=== PATIENT | male | born 1935 | race African-American/Black ===

== ENCOUNTER 2016-07-28 15:47 | Inpatient (IN) | payer MEDICARE, BC ==
[~2016-07-28] VITALS: Ht 177.8 cm; Wt 93.9 kg
[~2016-07-28 15:47] MED LIST: AMLO1CAP61 PO; BETH25TA PO; FURO20TA4 PO; GABA300S PO; HYDR-4005 PO; LEVAQUIN; ROSU10TA PO; SILO8CAP PO; [UNRECOGNIZED DRUG - OTHER]
[2016-07-28 16:00] VITALS: BP 158/72
[2016-07-28 17:00] VITALS: BP 156/84
[2016-07-28] MEDS ORDERED: ONDANSETRON HCL 4MG/2ML VIAL IV PRN (17:00)
[2016-07-28] MEDS ORDERED: ACETAMINOPHEN 650MG/20.3ML UDC PO PRN (17:00)
[2016-07-28] MEDS ORDERED: DEXTROSE 50% WATER 50ML SYRINGE IV PRN ×2 (17:00→17:45)
[2016-07-28] MEDS ORDERED: DOCUSATE SODIUM 250MG CAPSULE PO PRN (17:00)
[2016-07-28] MEDS ORDERED: IPRATROPIUM/ALBUTEROL 0.5-3(2.5)MG/3ML NEB HHN PRN (17:00)
[2016-07-28] MEDS ORDERED: HYDRALAZINE 20MG/ML VIAL IV PRN (17:00)
[2016-07-28] MEDS ORDERED: GUAIFENESIN 200MG/10ML SUGAR FREE UDC PO PRN (17:30)
[2016-07-28] MEDS ORDERED: HYDRALAZINE 10 MG in SODIUM CHLORIDE 0.9% 49.5 ML IV PRN (17:30)
[2016-07-28] MEDS ORDERED: DOCUSATE SODIUM 100MG CAPSULE PO PRN (17:30)
[2016-07-28] MEDS ORDERED: NA PHOS,M-B/NA PHOS,DI-BA ENEMA 118ML PR PRN (17:45)
[2016-07-28] MEDS ORDERED: NITROGLYCERIN 0.4MG TABLET SL SL PRN (17:45)
[2016-07-28] MEDS ORDERED: ZOLPIDEM TARTRATE 5MG TABLET PO PRN (17:45)
[2016-07-28 20:00] VITALS: BP 139/83
[2016-07-28] MEDS: INSULIN LISPRO 100 UNITS/ML SUBCUT SCH (21:00)
[2016-07-28] MEDS: BLOOD SUGAR DIAGNOSTIC STRIP TEST SCH (21:00)
[2016-07-28] MEDS: FAMOTIDINE 20MG TABLET PO SCH (22:16)
[2016-07-28] MEDS: ASCORBIC ACID 500 MG TABLET PO SCH (22:17)
[2016-07-28] MEDS: SILDENAFIL CITRATE 20MG TABLET PO SCH (22:19)
[2016-07-28] MEDS: ENOXAPARIN 30MG/0.3ML SYR SUBCUT SCH (22:23)
[2016-07-28] MEDS: [UNRECOGNIZED DRUG - OTHER] PO PRN (22:25)
[2016-07-29] MEDS: CEFEPIME 1,000 MG in DEXTROSE 5% WATER 50 ML IV SCH ×2 (04:38→17:22)
[2016-07-29] MEDS: SILDENAFIL CITRATE 20MG TABLET PO SCH ×3 (06:38→21:00)
[2016-07-29] MEDS: BLOOD SUGAR DIAGNOSTIC STRIP TEST SCH ×4 (06:39→20:53)
[2016-07-29] MEDS: INSULIN LISPRO 100 UNITS/ML SUBCUT SCH ×4 (06:39→20:53)
[2016-07-29] MEDS: HYDROCODONE/ACETAMINOPHEN 10/325MG TABLET PO PRN ×2 (06:47→17:16)
[2016-07-29] MEDS: [UNRECOGNIZED DRUG - OTHER] PO PRN (06:47)
[2016-07-29 08:00] VITALS: BP 198/100
[2016-07-29] MEDS: FAMOTIDINE 20MG TABLET PO SCH ×2 (08:05→20:56)
[2016-07-29] MEDS: ASPIRIN 325MG TABLET PO SCH (08:06)
[2016-07-29] MEDS: CLOPIDOGREL 75MG TABLET PO SCH (08:06)
[2016-07-29] MEDS: ASCORBIC ACID 500 MG TABLET PO SCH ×2 (08:06→20:55)
[2016-07-29] MEDS: ENOXAPARIN 30MG/0.3ML SYR SUBCUT SCH ×2 (08:07→20:55)
[2016-07-29] MEDS ORDERED: CLONIDINE 0.1MG TABLET PO PRN (09:00)
[2016-07-29] MEDS ORDERED: AMLODIPINE 5MG TABLET PO SCH (09:00)
[2016-07-29] MEDS: LISINOPRIL 20MG TABLET PO SCH ×2 (09:13→20:56)
[2016-07-29 09:15] VITALS: BP 146/78
[2016-07-29 10:14] VITALS: BP 130/76
[2016-07-29] MEDS ORDERED: LACTULOSE 20G/30ML UDC PO PRN (14:45)
[2016-07-29] MEDS: FUROSEMIDE 20MG TABLET PO SCH (17:17)
[2016-07-29] MEDS: MAGNESIUM/ALUMINUM HYDROXIDE/SIMETHICONE 30ML UDC PO PRN (17:22)
[2016-07-29 20:00] VITALS: BP 141/98
[2016-07-29] MEDS: AMLODIPINE 5MG TABLET PO SCH (20:55)
[2016-07-29] MEDS: ATORVASTATIN CALCIUM 10MG TABLET PO SCH (20:56)
[2016-07-30] MEDS: CEFEPIME 1,000 MG in DEXTROSE 5% WATER 50 ML IV SCH ×2 (03:52→16:29)
[2016-07-30] MEDS: SILDENAFIL CITRATE 20MG TABLET PO SCH ×3 (05:08→21:30)
[2016-07-30] MEDS: BLOOD SUGAR DIAGNOSTIC STRIP TEST SCH ×4 (06:07→21:40)
[2016-07-30] MEDS: INSULIN LISPRO 100 UNITS/ML SUBCUT SCH ×4 (07:08→21:00)
[2016-07-30 08:00] VITALS: BP 152/88
[2016-07-30] MEDS: AMLODIPINE 5MG TABLET PO SCH ×2 (09:22→21:00)
[2016-07-30] MEDS: ASPIRIN 325MG TABLET PO SCH (09:22)
[2016-07-30] MEDS: ASCORBIC ACID 500 MG TABLET PO SCH ×2 (09:22→21:29)
[2016-07-30] MEDS: FAMOTIDINE 20MG TABLET PO SCH ×2 (09:22→21:29)
[2016-07-30] MEDS: FUROSEMIDE 20MG TABLET PO SCH ×2 (09:22→16:29)
[2016-07-30] MEDS: CLOPIDOGREL 75MG TABLET PO SCH (09:22)
[2016-07-30] MEDS: LISINOPRIL 20MG TABLET PO SCH ×2 (09:22→21:29)
[2016-07-30] MEDS: ENOXAPARIN 30MG/0.3ML SYR SUBCUT SCH ×2 (09:23→21:30)
[2016-07-30] MEDS: [UNRECOGNIZED DRUG - OTHER] PO PRN (09:47)
[2016-07-30] MEDS: TRAMADOL 50MG TABLET PO PRN (09:49)
[2016-07-30 13:36] VITALS: BP 136/76
[2016-07-30 20:00] VITALS: BP 115/66
[2016-07-30] MEDS: ATORVASTATIN CALCIUM 10MG TABLET PO SCH (21:30)
[2016-07-30] MEDS: HYDROCODONE/ACETAMINOPHEN 10/325MG TABLET PO PRN (21:32)
[2016-07-31] MEDS: CEFEPIME 1,000 MG in DEXTROSE 5% WATER 50 ML IV SCH ×2 (06:40→16:09)
[2016-07-31] MEDS: SILDENAFIL CITRATE 20MG TABLET PO SCH ×3 (06:41→22:57)
[2016-07-31] MEDS: BLOOD SUGAR DIAGNOSTIC STRIP TEST SCH ×4 (06:46→21:00)
[2016-07-31] MEDS: INSULIN LISPRO 100 UNITS/ML SUBCUT SCH ×4 (06:46→21:00)
[2016-07-31] MEDS: MAGNESIUM/ALUMINUM HYDROXIDE/SIMETHICONE 30ML UDC PO PRN (06:56)
[2016-07-31] MEDS: HYDROCODONE/ACETAMINOPHEN 10/325MG TABLET PO PRN (06:59)
[2016-07-31 08:07] VITALS: BP 143/80
[2016-07-31] MEDS: LISINOPRIL 20MG TABLET PO SCH ×2 (08:32→22:57)
[2016-07-31] MEDS: AMLODIPINE 5MG TABLET PO SCH ×2 (08:32→22:57)
[2016-07-31] MEDS: ASCORBIC ACID 500 MG TABLET PO SCH ×2 (08:32→22:56)
[2016-07-31] MEDS: CLOPIDOGREL 75MG TABLET PO SCH (08:32)
[2016-07-31] MEDS: ASPIRIN 325MG TABLET PO SCH (08:32)
[2016-07-31] MEDS: FAMOTIDINE 20MG TABLET PO SCH ×2 (08:32→22:55)
[2016-07-31] MEDS: FUROSEMIDE 20MG TABLET PO SCH ×2 (08:32→17:14)
[2016-07-31] MEDS: ENOXAPARIN 30MG/0.3ML SYR SUBCUT SCH ×2 (08:34→22:56)
[2016-07-31 08:43] LABS: HEMATOCRIT. 40.7 % (42.0-52.0); HEMOGLOBIN. 13.3 g/dL (14.0-18.0); LYMPHOCYTES % 23.8 % (20.0-50.0); MEAN CORPUSCULAR VOLUME 82.2 fL (80.0-94.0); MEAN PLATELET VOLUME 8.7 fl (7.4-10.4); MONOCYTES % 10.5 % (2.0-8.0); NEUTROPHILS % 60.7 % (40.0-76.0); PLATELET 225 x1000/uL (130-400); RED BLOOD CELL COUNT 4.94 mill/uL (4.7-6.1); RED CELL DISTRIBUTION WIDTH 15.1 % (11.6-14.6)
[2016-07-31 08:54] LABS: CARBON DIOXIDE 30 mEq/L (21-32); CHLORIDE 107 mEq/L (98-107)
[2016-07-31 20:00] VITALS: BP 148/74
[2016-07-31] MEDS: ATORVASTATIN CALCIUM 10MG TABLET PO SCH (22:56)
[2016-08-01] MEDS: CEFEPIME 1,000 MG in DEXTROSE 5% WATER 50 ML IV SCH ×2 (03:33→16:22)
[2016-08-01] MEDS: [UNRECOGNIZED DRUG - OTHER] PO PRN (03:34)
[2016-08-01] MEDS: SILDENAFIL CITRATE 20MG TABLET PO SCH ×3 (06:21→22:12)
[2016-08-01] MEDS: BLOOD SUGAR DIAGNOSTIC STRIP TEST SCH ×4 (06:30→21:00)
[2016-08-01 08:00] VITALS: BP 124/75
[2016-08-01] MEDS: ASCORBIC ACID 500 MG TABLET PO SCH ×2 (08:57→22:11)
[2016-08-01] MEDS: CLOPIDOGREL 75MG TABLET PO SCH (08:57)
[2016-08-01] MEDS: AMLODIPINE 5MG TABLET PO SCH ×2 (08:57→22:12)
[2016-08-01] MEDS: FAMOTIDINE 20MG TABLET PO SCH ×2 (08:57→22:11)
[2016-08-01] MEDS: FUROSEMIDE 20MG TABLET PO SCH ×2 (08:57→17:05)
[2016-08-01] MEDS: ASPIRIN 325MG TABLET PO SCH (08:58)
[2016-08-01] MEDS: LISINOPRIL 20MG TABLET PO SCH ×2 (08:58→22:12)
[2016-08-01] MEDS: INSULIN LISPRO 100 UNITS/ML SUBCUT SCH ×4 (08:59→21:00)
[2016-08-01] MEDS: ENOXAPARIN 30MG/0.3ML SYR SUBCUT SCH ×2 (08:59→22:11)
[2016-08-01 14:10] VITALS: BP 130/77
[2016-08-01 17:40] VITALS: BP 144/69
[2016-08-01] MEDS: HYDROCODONE/ACETAMINOPHEN 10/325MG TABLET PO PRN (17:51)
[2016-08-01 20:00] VITALS: BP 119/64
[2016-08-01] MEDS: ATORVASTATIN CALCIUM 10MG TABLET PO SCH (22:11)
[2016-08-02] MEDS: CEFEPIME 1,000 MG in DEXTROSE 5% WATER 50 ML IV SCH ×2 (03:35→15:58)
[2016-08-02] MEDS: BLOOD SUGAR DIAGNOSTIC STRIP TEST SCH ×4 (05:44→21:00)
[2016-08-02] MEDS: SILDENAFIL CITRATE 20MG TABLET PO SCH ×3 (05:45→22:05)
[2016-08-02] MEDS: INSULIN LISPRO 100 UNITS/ML SUBCUT SCH ×4 (05:45→21:00)
[2016-08-02 08:00] VITALS: BP 125/88
[2016-08-02] MEDS: ENOXAPARIN 30MG/0.3ML SYR SUBCUT SCH ×2 (08:57→22:05)
[2016-08-02] MEDS: CLOPIDOGREL 75MG TABLET PO SCH (08:57)
[2016-08-02] MEDS: AMLODIPINE 5MG TABLET PO SCH ×2 (08:58→22:06)
[2016-08-02] MEDS: FUROSEMIDE 20MG TABLET PO SCH ×2 (08:58→17:17)
[2016-08-02] MEDS: LISINOPRIL 20MG TABLET PO SCH ×2 (08:58→22:05)
[2016-08-02] MEDS: ASCORBIC ACID 500 MG TABLET PO SCH ×2 (08:58→22:04)
[2016-08-02] MEDS: FAMOTIDINE 20MG TABLET PO SCH ×2 (08:58→22:04)
[2016-08-02] MEDS: ASPIRIN 325MG TABLET PO SCH (08:58)
[2016-08-02] MEDS: HYDROCODONE/ACETAMINOPHEN 10/325MG TABLET PO PRN ×2 (12:28→19:54)
[2016-08-02] MEDS ORDERED: TRAMADOL 50MG TABLET PO PRN (14:15)
[2016-08-02] MEDS ORDERED: ZOLPIDEM TARTRATE 5MG TABLET PO PRN (14:15)
[2016-08-02 14:50] VITALS: BP 132/80
[2016-08-02 20:51] VITALS: BP 110/60
[2016-08-02] MEDS: ATORVASTATIN CALCIUM 10MG TABLET PO SCH (22:04)
[2016-08-03] MEDS: TRAMADOL 50MG TABLET PO PRN ×2 (01:15→10:31)
[2016-08-03] MEDS: CEFEPIME 1,000 MG in DEXTROSE 5% WATER 50 ML IV SCH ×2 (03:33→16:46)
[2016-08-03] MEDS: SILDENAFIL CITRATE 20MG TABLET PO SCH ×3 (05:44→21:51)
[2016-08-03] MEDS: BLOOD SUGAR DIAGNOSTIC STRIP TEST SCH ×4 (05:51→21:51)
[2016-08-03 08:00] VITALS: BP 131/67
[2016-08-03] MEDS: INSULIN LISPRO 100 UNITS/ML SUBCUT SCH ×4 (08:04→21:00)
[2016-08-03] MEDS: FUROSEMIDE 20MG TABLET PO SCH ×2 (08:46→16:46)
[2016-08-03] MEDS: AMLODIPINE 5MG TABLET PO SCH ×2 (08:46→21:52)
[2016-08-03] MEDS: LISINOPRIL 20MG TABLET PO SCH ×2 (08:46→21:00)
[2016-08-03] MEDS: FAMOTIDINE 20MG TABLET PO SCH ×2 (08:46→21:50)
[2016-08-03] MEDS: CLOPIDOGREL 75MG TABLET PO SCH (08:47)
[2016-08-03] MEDS: ENOXAPARIN 30MG/0.3ML SYR SUBCUT SCH ×2 (08:47→21:53)
[2016-08-03] MEDS: ASPIRIN 325MG TABLET PO SCH (08:47)
[2016-08-03] MEDS: ASCORBIC ACID 500 MG TABLET PO SCH ×2 (08:47→21:50)
[2016-08-03 20:00] VITALS: BP 123/73
[2016-08-03] MEDS: ATORVASTATIN CALCIUM 10MG TABLET PO SCH (21:50)
[2016-08-03] MEDS: HYDROCODONE/ACETAMINOPHEN 10/325MG TABLET PO PRN (22:23)
[2016-08-04] MEDS: CEFEPIME 1,000 MG in DEXTROSE 5% WATER 50 ML IV SCH ×2 (04:14→15:18)
[2016-08-04] MEDS: BLOOD SUGAR DIAGNOSTIC STRIP TEST SCH ×4 (05:37→21:00)
[2016-08-04] MEDS: SILDENAFIL CITRATE 20MG TABLET PO SCH ×3 (05:37→23:30)
[2016-08-04] MEDS: INSULIN LISPRO 100 UNITS/ML SUBCUT SCH ×4 (05:37→21:00)
[2016-08-04 08:00] VITALS: BP 114/67
[2016-08-04] MEDS: HYDROCODONE/ACETAMINOPHEN 10/325MG TABLET PO PRN ×3 (09:31→22:05)
[2016-08-04] MEDS: LISINOPRIL 20MG TABLET PO SCH ×2 (09:33→21:00)
[2016-08-04] MEDS: AMLODIPINE 5MG TABLET PO SCH ×2 (09:33→23:30)
[2016-08-04] MEDS: CLOPIDOGREL 75MG TABLET PO SCH (09:33)
[2016-08-04] MEDS: ASCORBIC ACID 500 MG TABLET PO SCH ×2 (09:33→22:04)
[2016-08-04] MEDS: FUROSEMIDE 20MG TABLET PO SCH ×2 (09:33→18:05)
[2016-08-04] MEDS: MAGNESIUM/ALUMINUM HYDROXIDE/SIMETHICONE 30ML UDC PO PRN (09:33)
[2016-08-04] MEDS: ASPIRIN 325MG TABLET PO SCH (09:33)
[2016-08-04] MEDS: FAMOTIDINE 20MG TABLET PO SCH ×2 (09:33→22:04)
[2016-08-04] MEDS: ENOXAPARIN 30MG/0.3ML SYR SUBCUT SCH ×2 (09:34→22:05)
[2016-08-04 20:00] VITALS: BP 106/59
[2016-08-04] MEDS: ATORVASTATIN CALCIUM 10MG TABLET PO SCH (22:04)
[2016-08-05] MEDS: CEFEPIME 1,000 MG in DEXTROSE 5% WATER 50 ML IV SCH (04:34)
[2016-08-05] MEDS: BLOOD SUGAR DIAGNOSTIC STRIP TEST SCH ×4 (06:29→21:55)
[2016-08-05] MEDS: INSULIN LISPRO 100 UNITS/ML SUBCUT SCH ×4 (06:32→21:00)
[2016-08-05] MEDS: SILDENAFIL CITRATE 20MG TABLET PO SCH ×3 (06:32→21:55)
[2016-08-05] MEDS: HYDROCODONE/ACETAMINOPHEN 10/325MG TABLET PO PRN ×2 (06:38→19:54)
[2016-08-05 08:00] VITALS: BP 140/73
[2016-08-05] MEDS: CLOPIDOGREL 75MG TABLET PO SCH (09:16)
[2016-08-05] MEDS: LISINOPRIL 20MG TABLET PO SCH ×2 (09:17→21:54)
[2016-08-05] MEDS: ASPIRIN 325MG TABLET PO SCH (09:17)
[2016-08-05] MEDS: FUROSEMIDE 20MG TABLET PO SCH (09:17)
[2016-08-05] MEDS: AMLODIPINE 5MG TABLET PO SCH ×2 (09:17→21:54)
[2016-08-05] MEDS: ENOXAPARIN 30MG/0.3ML SYR SUBCUT SCH ×2 (09:17→21:55)
[2016-08-05] MEDS: FAMOTIDINE 20MG TABLET PO SCH ×2 (09:17→21:53)
[2016-08-05] MEDS: ASCORBIC ACID 500 MG TABLET PO SCH ×2 (09:17→21:53)
[2016-08-05 13:00] VITALS: BP 98/56
[2016-08-05] MEDS ORDERED: ASPIRIN 81MG TABLET PO SCH (15:00)
[2016-08-05 20:00] VITALS: BP_SYST 129; BP_SYST 86; BP_SYST 89; BP_DIAS 48; BP_DIAS 52; BP_DIAS 82
[2016-08-05] MEDS: ATORVASTATIN CALCIUM 10MG TABLET PO SCH (21:54)
[2016-08-06 04:21] VITALS: BP 153/76
[2016-08-06] MEDS: SILDENAFIL CITRATE 20MG TABLET PO SCH ×3 (05:48→22:55)
[2016-08-06] MEDS: HYDROCODONE/ACETAMINOPHEN 10/325MG TABLET PO PRN ×2 (05:49→20:53)
[2016-08-06] MEDS: BLOOD SUGAR DIAGNOSTIC STRIP TEST SCH ×4 (06:37→20:46)
[2016-08-06 06:57] LABS: BASOPHILS % 1.4 % (0.0-2.0); EOSINOPHILS % 1.4 % (0.0-5.0); HEMATOCRIT. 39.9 % (42.0-52.0); LYMPHOCYTES % 29.3 % (20.0-50.0); MEAN CORPUSCULAR VOLUME 82.8 fL (80.0-94.0); MEAN PLATELET VOLUME 8.5 fl (7.4-10.4); MONOCYTES % 12.7 % (2.0-8.0); NEUTROPHILS % 55.2 % (40.0-76.0); PLATELET 265 x1000/uL (130-400); RED BLOOD CELL COUNT 4.82 mill/uL (4.7-6.1); RED CELL DISTRIBUTION WIDTH 15.5 % (11.6-14.6)
[2016-08-06] MEDS: INSULIN LISPRO 100 UNITS/ML SUBCUT SCH ×4 (07:16→21:00)
[2016-08-06 07:26] LABS: CARBON DIOXIDE 28 mEq/L (21-32); CHLORIDE 108 mEq/L (98-107)
[2016-08-06 08:00] VITALS: BP 118/63
[2016-08-06] MEDS: ASPIRIN 81MG TABLET PO SCH (09:24)
[2016-08-06] MEDS: CLOPIDOGREL 75MG TABLET PO SCH (09:24)
[2016-08-06] MEDS: FAMOTIDINE 20MG TABLET PO SCH ×2 (09:24→21:48)
[2016-08-06] MEDS: ASCORBIC ACID 500 MG TABLET PO SCH ×2 (09:24→21:48)
[2016-08-06] MEDS: AMLODIPINE 5MG TABLET PO SCH ×2 (09:25→21:49)
[2016-08-06] MEDS: LISINOPRIL 20MG TABLET PO SCH (09:25)
[2016-08-06] MEDS: ENOXAPARIN 30MG/0.3ML SYR SUBCUT SCH ×2 (09:29→21:47)
[2016-08-06] MEDS: TRAMADOL 50MG TABLET PO PRN ×2 (09:31→20:46)
[2016-08-06 20:00] VITALS: BP 127/60
[2016-08-06] MEDS: LISINOPRIL 10MG TABLET PO SCH (21:48)
[2016-08-06] MEDS: ATORVASTATIN CALCIUM 10MG TABLET PO SCH (21:49)
[2016-08-07] MEDS: SILDENAFIL CITRATE 20MG TABLET PO SCH ×3 (05:50→22:15)
[2016-08-07] MEDS: TRAMADOL 50MG TABLET PO PRN ×3 (05:53→13:20)
[2016-08-07] MEDS: BLOOD SUGAR DIAGNOSTIC STRIP TEST SCH ×4 (06:41→21:08)
[2016-08-07] MEDS: INSULIN LISPRO 100 UNITS/ML SUBCUT SCH ×4 (06:42→21:00)
[2016-08-07 08:10] VITALS: BP 139/71
[2016-08-07] MEDS: CLOPIDOGREL 75MG TABLET PO SCH (08:15)
[2016-08-07] MEDS: LISINOPRIL 10MG TABLET PO SCH ×2 (08:15→22:16)
[2016-08-07] MEDS: ASCORBIC ACID 500 MG TABLET PO SCH ×2 (08:15→21:07)
[2016-08-07] MEDS: FAMOTIDINE 20MG TABLET PO SCH ×2 (08:15→21:07)
[2016-08-07] MEDS: AMLODIPINE 5MG TABLET PO SCH ×2 (08:15→22:16)
[2016-08-07] MEDS: ENOXAPARIN 30MG/0.3ML SYR SUBCUT SCH ×2 (08:16→21:09)
[2016-08-07] MEDS: ASPIRIN 81MG TABLET PO SCH (08:16)
[2016-08-07] MEDS: HYDROCODONE/ACETAMINOPHEN 10/325MG TABLET PO PRN ×2 (13:25→21:08)
[2016-08-07] MEDS: GABAPENTIN 300MG CAPSULE PO SCH ×2 (14:22→22:10)
[2016-08-07 20:00] VITALS: BP 122/67
[2016-08-07] MEDS ORDERED: ZOLPIDEM TARTRATE 5MG TABLET PO PRN (21:00)
[2016-08-07] MEDS: ATORVASTATIN CALCIUM 10MG TABLET PO SCH (21:07)
[2016-08-07] MEDS ORDERED: GABAPENTIN 300MG CAPSULE PO SCH (22:00)
[2016-08-08] MEDS: BLOOD SUGAR DIAGNOSTIC STRIP TEST SCH ×2 (05:32→11:08)
[2016-08-08] MEDS: GABAPENTIN 300MG CAPSULE PO SCH ×2 (05:32→13:58)
[2016-08-08] MEDS: INSULIN LISPRO 100 UNITS/ML SUBCUT SCH ×2 (05:35→11:08)
[2016-08-08] MEDS: SILDENAFIL CITRATE 20MG TABLET PO SCH ×2 (05:35→13:57)
[2016-08-08] MEDS: HYDROCODONE/ACETAMINOPHEN 10/325MG TABLET PO PRN (06:40)
[2016-08-08 08:00] VITALS: BP 129/79
[2016-08-08] MEDS: ASCORBIC ACID 500 MG TABLET PO SCH (08:01)
[2016-08-08] MEDS: LISINOPRIL 10MG TABLET PO SCH (08:01)
[2016-08-08] MEDS: ASPIRIN 81MG TABLET PO SCH (08:01)
[2016-08-08] MEDS: ENOXAPARIN 30MG/0.3ML SYR SUBCUT SCH (08:01)
[2016-08-08] MEDS: FAMOTIDINE 20MG TABLET PO SCH (08:02)
[2016-08-08] MEDS: CLOPIDOGREL 75MG TABLET PO SCH (08:02)
[2016-08-08] MEDS: AMLODIPINE 5MG TABLET PO SCH (08:02)
[2016-08-08 13:50] VITALS: BP 144/78
[2016-08-08 14:27] VITALS: BP 144/78
== END 2016-08-08 15:55 | disposition home health service (06) | DRG 56 ==
PROVIDERS: ADMIT Psychiatry & Neurology Neurology; ATTEND Internal Medicine
DX: I69.322 Dysarthria following cerebral infarction (principal); I63.9 Cerebral infarction, unspecified; J96.90 Respiratory failure, unspecified, unspecified whether with hypoxia or hypercapnia; J69.0 Pneumonitis due to inhalation of food and vomit; G93.40 Encephalopathy, unspecified; C64.2 Malignant neoplasm of left kidney, except renal pelvis; R00.1 Bradycardia, unspecified; D64.9 Anemia, unspecified; E78.5 Hyperlipidemia, unspecified; I12.9 Hypertensive chronic kidney disease with stage 1 through stage 4 chronic kidney disease, or unspecified chronic kidney disease; N18.9 Chronic kidney disease, unspecified; I25.10 Atherosclerotic heart disease of native coronary artery without angina pectoris; G89.29 Other chronic pain; M54.5 Low back pain; N40.0 Benign prostatic hyperplasia without lower urinary tract symptoms; M19.90 Unspecified osteoarthritis, unspecified site; E11.8 Type 2 diabetes mellitus with unspecified complications; I44.0 Atrioventricular block, first degree; I45.10 Unspecified right bundle-branch block; E66.9 Obesity, unspecified; Z60.2 Problems related to living alone; E11.22 Type 2 diabetes mellitus with diabetic chronic kidney disease; E78.00 Pure hypercholesterolemia, unspecified; I27.2 Other secondary pulmonary hypertension; I35.0 Nonrheumatic aortic (valve) stenosis; K80.20 Calculus of gallbladder without cholecystitis without obstruction; R29.810 Facial weakness; Z68.29 Body mass index [BMI] 29.0-29.9, adult; I25.2 Old myocardial infarction; Z79.02 Long term (current) use of antithrombotics/antiplatelets; Z79.4 Long term (current) use of insulin; Z79.82 Long term (current) use of aspirin; Z79.899 Other long term (current) drug therapy; Z86.718 Personal history of other venous thrombosis and embolism
CPT/HCPCS: 36415; 80048; 82962; 83735; 85025; 92523; 92610; 97110; 97112; 97116; 97163; 97167; 97530; 97535; A6261; C1893; J0692; J1650; J7040; J7050; J7060